=== PATIENT | female | born 1990 | race Native Hawaiian/Other Pacific Islander ===

== ENCOUNTER 2016-08-22 23:43 | Inpatient (IN) | payer MEDICAID ==
[~2016-08-22] VITALS: Ht 177.8 cm; Wt 83.9 kg
[2016-08-23] MEDS ORDERED: ACTIVATED CHARCOAL 50 GM/240 ML SOL ONE (00:02)
[2016-08-23] MEDS ORDERED: ACTIVATED CHARCOAL 50 GM/240 ML SOL PO ONE (00:10)
[2016-08-23 00:43] LABS: Urine Bilirubin Negative (Negative); Urine Color Yellow (Yellow); Urine Glucose Normal (Normal); Urine Ketone Negative (Negative); Urine Nitrite Negative (Negative); Urine RBC 3 /hpf (0 - 4); Urine Squamous Epithelial Cell FEW /hpf (<5); Urine Urobilinogen Normal (Negative)
[2016-08-23 00:44] LABS: Urine Blood 1+ /uL (Negative)
[2016-08-23 01:20] LABS: Salicylate < 1.7 mg/dL (2.8-20.0)
[2016-08-23 01:22] LABS: Acetaminophen 165.8 ug/mL (10-30); Albumin 3.7 g/dL (3.4-5.0); Alkaline Phosphatase 62 U/L (45-117); Anion Gap 12 (5-15); Aspartate Aminotransferase 13 U/L (15-37); Bilirubin, Total 0.3 mg/dL (0.2-1.0); Blood Urea Nitrogen 11 mg/dL (7-18); Calcium 8.6 mg/dL (8.5-10.1); Carbon Dioxide 25 mmol/L (21-32); Chloride 108 mmol/L (98-107); GFR African American 96 mL/min; GFR Non-African American 79 mL/min; Glucose 108 mg/dL (74-106); Potassium 3.6 mmol/L (3.5-5.1); Sodium 145 mmol/L (136-145); Total Protein 7.5 g/dL (6.4-8.2)
[2016-08-23 01:27] LABS: Basophils # (auto) 0 uL; Basophils % (auto) 0.4 % (0.0-2.0); Eosinophils # (auto) 0.1 uL; Eosinophils % (auto) 1.1 % (0.0-7.0); Hemoglobin 12.8 g/dL (12.2-16.2); Lymphocytes # (auto) 1.7 uL; Lymphocytes % (auto) 21.3 % (10.0-50.0); Mean Corpuscular Hemoglobin 30.3 pg (28.0-32.0); Mean Corpuscular Hgb Conc. 33.7 g/dL (32.0-36.0); Mean Corpuscular Volume 90.1 fL (80.0-100.0); Mean Platelet Volume 9.4 fL (7.4-10.4); Monocytes # (auto) 0.6 uL; Monocytes % (auto) 7.3 % (0.0-12.0); Neutrophils # (auto) 5.5 uL; Neutrophils % (auto) 69.9 % (37.0-80.0); Platelet Count (auto) 246 10^3/uL (140-450); Red Cell Distribution Width 13.2 % (11.6-16.0); White Blood Cell 7.9 10^3/uL (4.4-10.8)
[2016-08-23] MEDS ORDERED: D5W 5% IV ONE ×2 (02:00→07:15)
[2016-08-23] MEDS ORDERED: ACETYLCYSTEINE IV ONE ×2 (02:00→07:15)
[2016-08-23] MEDS ORDERED: ACETYLCYSTEINE 200MG/ML IV SOLN 30ML IV ONE (02:43)
[2016-08-23 05:56] LABS: Albumin 3.4 g/dL (3.4-5.0); BUN/Creatinine Ratio 9.7; Bilirubin, Total 0.4 mg/dL (0.2-1.0); Calcium 8.1 mg/dL (8.5-10.1); Potassium 3.9 mmol/L (3.5-5.1); Total Protein 7.1 g/dL (6.4-8.2)
[2016-08-23] MEDS ORDERED: TEMAZEPAM 15 MG CAP PO PRN (09:30)
[2016-08-23] MEDS ORDERED: ONDANSETRON HCL 4 MG/2 ML VIAL IV PRN (09:30)
[2016-08-23] MEDS ORDERED: DOCUSATE SOD 100 MG CAP PO PRN (09:30)
[2016-08-23] MEDS ORDERED: NITROGLYCERIN 0.4 MG SL TAB SL PRN (09:30)
[2016-08-23] MEDS ORDERED: MORPHINE SULF INJ 2 MG/ML SYRINGE 1ML IV PRN ×2 (09:30)
[2016-08-23] MEDS: MULTIPLE VITAMIN TAB PO SCH (10:15)
[2016-08-23] MEDS: FAMOTIDINE 20 MG TAB PO SCH ×2 (10:15→22:28)
[2016-08-23] MEDS: ACETYLCYSTEINE IV SCH (11:39)
[2016-08-23] MEDS: SODIUM CHLOR 0.9% PF (SALINE LOCK) 10ML VIAL IV SCH ×2 (11:39→22:04)
[2016-08-23] MEDS: D5W 5% IV SCH (11:39)
[2016-08-23] MEDS ORDERED: ACETYLCYSTEINE IV SCH (12:00)
[2016-08-23] MEDS ORDERED: D5W 5% IV SCH (12:00)
[2016-08-24] MEDS: ACETYLCYSTEINE IV SCH (03:26)
[2016-08-24] MEDS: D5W 5% IV SCH (03:26)
[2016-08-24 06:10] LABS: Basophils # (auto) 0 uL; Basophils % (auto) 0.3 % (0.0-2.0); Eosinophils # (auto) 0.1 uL; Eosinophils % (auto) 0.7 % (0.0-7.0); Hematocrit 38.9 % (36.0-46.0); Lymphocytes # (auto) 1.2 uL; Lymphocytes % (auto) 15.9 % (10.0-50.0); Mean Corpuscular Hemoglobin 30.1 pg (28.0-32.0); Mean Corpuscular Hgb Conc. 33.3 g/dL (32.0-36.0); Mean Corpuscular Volume 90.4 fL (80.0-100.0); Mean Platelet Volume 8.6 fL (7.4-10.4); Monocytes # (auto) 0.3 uL; Monocytes % (auto) 4.1 % (0.0-12.0); Platelet Count (auto) 240 10^3/uL (140-450); Red Cell Distribution Width 12.9 % (11.6-16.0); White Blood Cell 7.7 10^3/uL (4.4-10.8)
[2016-08-24] MEDS: SODIUM CHLOR 0.9% PF (SALINE LOCK) 10ML VIAL IV SCH (06:39)
[2016-08-24 06:47] LABS: Albumin 3.5 g/dL (3.4-5.0); BUN/Creatinine Ratio 8.6; Bilirubin, Total 0.5 mg/dL (0.2-1.0); Calcium 8.4 mg/dL (8.5-10.1); Potassium 3.4 mmol/L (3.5-5.1); Total Protein 7.5 g/dL (6.4-8.2)
[2016-08-24 07:37] LABS: INR 1.08 (0.9-1.15); Prothrombin Time 11.7 sec (9.37-12.3)
[2016-08-24] MEDS: MULTIPLE VITAMIN TAB PO SCH (10:14)
[2016-08-24] MEDS: FAMOTIDINE 20 MG TAB PO SCH (10:14)
[2016-08-24 10:17] VITALS: BP 123/61
[2016-08-24] MEDS ORDERED: POTASSIUM CHL 20 Meq TABLET PO SCH (11:00)
== END 2016-08-24 12:15 | DRG 812 ==
LOC: EDBD 23:43 → ER 23:50 → TELE 23:51
PROVIDERS: ADMIT Internal Medicine; ATTEND Internal Medicine
DX: T39.1X2A Poisoning by 4-Aminophenol derivatives, intentional self-harm, initial encounter (principal); F33.3 Major depressive disorder, recurrent, severe with psychotic symptoms; E87.1 Hypo-osmolality and hyponatremia; E83.51 Hypocalcemia; T14.91 Suicide attempt; N18.1 Chronic kidney disease, stage 1; Y92.89 Other specified places as the place of occurrence of the external cause; Z82.49 Family history of ischemic heart disease and other diseases of the circulatory system; Z83.3 Family history of diabetes mellitus
CPT/HCPCS: 36415; 80053; 80320; 80329; 81001; 81025; 85025; 85610; 87086; 93005; 96365; 96366; G0434; J7060

== ENCOUNTER 2020-01-07 19:07 | Emergency (ER) | payer MEDICAID ==
[~2020-01-07] VITALS: Ht 177.8 cm; Wt 106.6 kg
[2020-01-07 20:00] VITALS: BP 118/80
[2020-01-07] MEDS ORDERED: cefTRIAXone SOD 1,000 MG VL IM ONE (20:30)
[2020-01-07] MEDS ORDERED: KETOROLAC TROMETH 60MG/2ML VIAL IM ONE (20:30)
== END 2020-01-07 21:25 | disposition home or self-care (01) ==
LOC: ER 19:07
DX: S02.5XXA Fracture of tooth (traumatic), initial encounter for closed fracture (principal); K04.7 Periapical abscess without sinus; X58.XXXA Exposure to other specified factors, initial encounter; Y93.89 Activity, other specified; Y92.89 Other specified places as the place of occurrence of the external cause; Y99.8 Other external cause status
CPT/HCPCS: 96372; 99284; J0696; J1885

== ENCOUNTER → 2020-02-23 | Emergency (ER) | payer MEDICAID ==
[~2020-02-23] VITALS: Ht 177.8 cm; Wt 104.9 kg
[2020-02-23 12:59] VITALS: BP 129/82
== END | disposition home or self-care (01) ==
LOC: ER 11:46
DX: K08.89 Other specified disorders of teeth and supporting structures (principal); H92.01 Otalgia, right ear